=== PATIENT | female | born 1940 | race Caucasian/White ===

== ENCOUNTER 2017-06-25 18:59 | Observation (INO) | payer OTHER ==
[~2017-06-25] VITALS: Ht 165.1 cm; Wt 57.0 kg
[~2017-06-25 18:59] MED LIST: ATEN50 PO; CLON.1 PO; LEVO75TA3 PO; LOFI54TA PO; LOSA50TA PO; MOBI7.5T PO; NIFE1TAB85 PO; OXYB5TAB PO; TRAZ50TA4 PO; VENL150T14 PO
[2017-06-25 19:06] VITALS: BP 143/75; PULSE 73; RESP 20; TEMP 98.3; O2SAT 96
[2017-06-25] MEDS ORDERED: ONDANSETRON HCL 4 MG/2 ML VIAL IVP ONE (19:15)
[2017-06-25] MEDS ORDERED: MORPHINE SULFATE 4 MG/ML INJ IV PUSH ONE (19:15)
[2017-06-25 19:16] VITALS: RESP 20
[2017-06-25] MEDS ORDERED: LEVO75TA3 PO (19:28)
[2017-06-25] MEDS ORDERED: OXYB5TAB PO (19:28)
[2017-06-25] MEDS ORDERED: LEVO100T5 PO (19:28)
[2017-06-25] MEDS ORDERED: VENL75TA PO (19:28)
[2017-06-25] MEDS ORDERED: ZANT150T2 PO (19:28)
[2017-06-25] MEDS ORDERED: MELO15TA20 PO (19:28)
[2017-06-25] MEDS ORDERED: DULO1CAP PO (19:28)
[2017-06-25] MEDS ORDERED: ATEN50TA PO (19:28)
[2017-06-25] MEDS ORDERED: VENTAER INH (19:28)
[2017-06-25] MEDS ORDERED: LOSA50TA PO (19:28)
[2017-06-25] MEDS ORDERED: NIFE60TA58 PO (19:28)
[2017-06-25] MEDS ORDERED: FENO54TA PO (19:28)
[2017-06-25] MEDS ORDERED: TRAZ100T10 PO (19:28)
[2017-06-25 19:31] VITALS: BP 134/62; PULSE 64; RESP 20; TEMP 98; O2SAT 97
--- NOTE | 2017-06-25 19:33 | RADRPT ---
EXAM DATE/TIME: 06/25/2017 19:16 [facility] COMPARISON: CHEST SINGLE AP, November 10, 2015, 18:22. INDICATIONS : Chest pain. MEDICAL HISTORY : Anxiety, Hypothyroid, Hypertension, Cholesterol SURGICAL HISTORY : Tonsillectomy, Hysterectomy, Appendectomy, Gallbladder ENCOUNTER: Initial ACUITY: 1 day PAIN SCORE: 0/10 LOCATION: Bilateral chest FINDINGS: The heart size is normal. There is some faint density seen over the right upper lung likely related t o overlapping ribs. The lungs appear otherwise clear. No effusion is seen. CONCLUSION: 1. No acute abnormality seen. 2. A small focal density over the right upper chest likely related to overlapping ribs. This could be further evaluated with a PA and lateral chest x-ray. Abram Meléndez MD on June 25, 2017 at 19:30 Board Certified Radiologist. This report was verified electronically.
--- NOTE | 2017-06-25 20:12 | PD ---
HPI Chief Complaint: Chest Pain Time Seen by Provider: 19:05 Travel History International Travel<30 days: No Contact w/Intl Traveler<30days: No Traveled to known affect area: No History of Present Illness HPI 76-year-old female that presents to the ED for evaluation of left-sided chest pain and right-sided abdominal pain. Per patient he started about 2 hours before coming. Per patient he became severe. She has a history of this pain in the past but not as severe. Per patient never lasted this long. She was given aspirin by ambulance. She denies any history of stenting or CABG. Allergies to amlodipine and codeine. Per patient the pain is sharp and is 8 out of 10. more on the abdomen than the chest. Per patient she also had belching but no nausea or vomiting. Per patient abdominal pains on the right upper quadrant radiates to the flank. No urinary issues. No lower abdominal pain. She has had her gallbladder removed 4 years ago. She denies any other symptoms. She does feel short of breath because of the pain being so severe. Allergy to amlodipine and codeine. Has not seen anybody for this. Patient was brought here by ambulance for evaluation of this. Per patient she did took some Pepto-Bismol thinking that it will help but she has had similar pains with Pepto-Bismol improvement but this time it has not. PFSH Past Medical History Arthritis: Yes (OSTEOPOROSIS) Asthma: No Anxiety: Yes Heart Rhythm Problems: No Cancer: No Cardiac Catheterization: No Cardiovascular Problems: Yes High Cholesterol: Yes Chest Pain: Yes Congestive Heart Failure: No COPD: No Cerebrovascular Accident: No Diabetes: No Diminished Hearing: No Endocrine: Yes Gastrointestinal Disorders: Yes (PANCREATITIS) GERD: Yes Genitourinary: Yes Headaches: No Hiatal Hernia: No Hypertension: Yes Immune Disorder: No Implanted Vascular Access Dvce: No Kidney Stones: Yes Musculoskeletal: Yes (CARPAL TUNNEL EMMETT.; BULGING DISCS) Neurologic: Yes Psychiatric: Yes Reproductive: No Respiratory: Yes Immunizations Current: Yes Migraines: Yes Renal Failure: No Seizures: No Sleep Apnea: No Thyroid Disease: Yes (HYPO) Ulcer: No Tetanus Vaccination: < 5 Years Influenza Vaccination: Yes PNEUMOCCOCAL Vaccine (Year): 2 Menopausal: Yes Past Surgical History Abdominal Surgery: Yes (APPENDECTOMY, CHOLECYSTECTOMY,) Appendectomy: Yes (IN 1964) Cardiac Surgery: No Cholecystectomy: Yes (IN 1969) Coronary Artery Bypass Graft: No Ear Surgery: No Endocrine Surgery: No Eye Surgery: No Genitourinary Surgery: No Gynecologic Surgery: Yes (HYSTERECTOMY) Hysterectomy: Yes (RADICAL IN 1969) Neurologic Surgery: No Oral Surgery: Yes (TONSILECTOMY) Thoracic Surgery: No Tonsillectomy: Yes Other Surgery: Yes Family History Family Myocardial Infarction: Yes Social History Alcohol Use: No Tobacco Use: Yes (1PPD) Substance Use: No (H/O "PAIN PILL ABUSE" 5 YEARS AGO) Allergies-Medications (Allergen,Severity, Reaction): Coded Allergies: amlodipine (Unverified Allergy, Intermediate, Swelling, 06/25/17) Lower extremity edema codeine (Unverified Allergy, Unknown, Swelling, 06/25/17) Reported Meds & Prescriptions Reported Meds & Active Scripts Active Reported Zantac (Ranitidine HCl) 150 Mg Tab 150 Mg PO DAILY Nifedipine ER 24 HR (Nifedipine) 60 Mg Tab 60 Mg PO DAILY Losartan (Losartan Potassium) 50 Mg Tab 50 Mg PO BID Meloxicam 15 Mg Tab 15 Mg PO DAILY Fenofibrate 54 Mg Tab 54 Mg PO DAILY Atenolol 50 Mg Tab 50 Mg PO BID Oxybutynin ER 24 HR (Oxybutynin Chloride) 5 Mg Tab 5 Mg PO DAILY Effexor (Venlafaxine HCl) 75 Mg Tab 150 Mg PO DAILY Levothyroxine (Levothyroxine Sodium) 100 Mcg Tab 100 Mcg PO DAILY Duloxetine DR (Duloxetine HCl) 20 Mg Capdr 20 Mg PO DAILY Ventolin Hfa 18 GM Inh (Albuterol Sulfate) 90 Mcg/Act Aer 2 Puff INH Q4-6H PRN Trazodone (Trazodone HCl) 100 Mg Tablet 100 Mg PO HS Review of Systems Except as stated in HPI: all other systems reviewed are Neg Physical Exam Narrative GENERAL: SKIN: Warm and dry. HEAD: Atraumatic. Normocephalic. EYES: Pupils equal and round. No scleral icterus. No injection or drainage. ENT: No nasal bleeding or discharge. Mucous membranes pink and moist. Tongue is midline. No uvula deviation. NECK: Trachea midline. No JVD. CARDIOVASCULAR: Regular rate and rhythm. RESPIRATORY: No accessory muscle use. Clear to auscultation. Breath sounds equal bilaterally. GASTROINTESTINAL: Abdomen soft, non-tender, nondistended. Hepatic and splenic margins not palpable. MUSCULOSKELETAL: Extremities without clubbing, cyanosis, or edema. No obvious deformities. Full range of motion of the upper and lower extremities bilaterally. 2+ pulses bilaterally. NEUROLOGICAL: Awake and alert. No obvious cranial nerve deficits. Motor grossly within normal limits. Five out of 5 muscle strength in the arms and legs. Normal speech. PSYCHIATRIC: Appropriate mood and affect; insight and judgment normal. Data Data Last Documented VS Vital Signs Date Time Temp Pulse Resp B/P (MAP) Pulse Ox O2 Delivery O2 Flow Rate FiO2 06/25/17 19:45 20 06/25/17 19:31 98.0 64 134/62 (86) 97 Room Air Orders Orders Electrocardiogram (06/25/17 19:12) Complete Blood Count With Diff (06/25/17:12) Comprehensive Metabolic Panel (06/25/17:12) Ckmb (Isoenzyme) Profile (06/25/17 19:12) Troponin I (06/25/17:12) Prothrombin Time / Inr (Pt) (06/25/17:12) Act Partial Throm Time (Ptt) (06/25/17 19:12) Lipase (06/25/17 19:12) Urinalysis - C+S If Indicated (06/25/17 19:12) Magnesium (Mg) (06/25/17 19:12) Chest, Single Ap (06/25/17 19:12) Ct Abd/Pel W Iv Contrast(Rout) (06/25/17 19:12) Iv Access Insert/Monitor (06/25/17 19:12) Ecg Monitoring (06/25/17:12) Oximetry (06/25/17 19:12) NPO (06/25/17 19:12) Morphine Inj (Morphine Inj) (06/25/17 19:15) Ondansetron Inj (Zofran Inj) (06/25/17 19:15) Al-Mag Hy-Si 40-40-4 Mg/Ml Liq (Mag-Al P (06/25/17 20:45) Lidocaine 2% Viscous (Xylocaine 2% Visco (06/25/17 20:45) Iohexol 350 Inj (Omnipaque 350 Inj) (06/25/17 21:30) Urine Culture (06/25/17 21:30) Morphine Inj (Morphine Inj) (06/25/17 22:45) Cephalexin (Keflex) (06/25/17 22:45) Admit Order (Ed Use Only) (06/25/17 22:40) Activity Bed Rest With Brp (06/25/17 22:41) Vital Signs (Adult) Q4H (06/25/17 22:41) Cardiac Rhythm .As Directed (06/25/17 22:41) Notify Dr: Other .PRN (06/25/17 22:41) Notify DrRolando Parameters (06/25/17 22:41) Resp Oxygen Nasal Cannula (06/25/17 ) Ckmb (Isoenzyme) Profile (06/25/17 22:41) Ckmb (Isoenzyme) Profile (06/26/17 01:41) Troponin I (06/25/17 22:41) Troponin I (06/26/17 01:41) Electrocardiogram (06/25/17 22:41) Electrocardiogram (06/26/17 01:41) ^ Obtain (06/25/17 22:41) Sodium Chloride 0.9% Flush (Ns Flush) (06/25/17 22:45) Sodium Chloride 0.9% Flush (Ns Flush) (06/26/17 09:00) Acetaminophen (Tylenol) (06/25/17 22:45) Acetamin-Hydrocod 325-7.5 Mg ([place] 7.5 (06/25/17 22:45) Morphine Inj (Morphine Inj) (06/25/17 22:45) Ondansetron Inj (Zofran Inj) (06/25/17 22:45) Soap Maker / Telemetry KIRSTIN.Q8H (06/25/17 22:41) Labs Laboratory Tests Test 06/25/17 19:30 06/25/17 21:30 White Blood Count 8.9 TH/MM3 Red Blood Count 3.98 MIL/MM3 Hemoglobin 12.4 GM/DL Hematocrit 36.9 % Mean Corpuscular Volume 92.7 FL Mean Corpuscular Hemoglobin 31.2 PG Mean Corpuscular Hemoglobin Concent 33.6 % Red Cell Distribution Width 15.7 % Platelet Count 331 TH/MM3 Mean Platelet Volume 8.0 FL Neutrophils (%) (Auto) 63.3 % Lymphocytes (%) (Auto) 24.5 % Monocytes (%) (Auto) 8.7 % Eosinophils (%) (Auto) 2.6 % Basophils (%) (Auto) 0.9 % Neutrophils # (Auto) 5.6 TH/MM3 Lymphocytes # (Auto) 2.2 TH/MM3 Monocytes # (Auto) 0.8 TH/MM3 Eosinophils # (Auto) 0.2 TH/MM3 Basophils # (Auto) 0.1 TH/MM3 CBC Comment DIFF FINAL Differential Comment Prothrombin Time 10.0 SEC Prothromb Time International Ratio 1.0 RATIO Activated Partial Thromboplast Time 25.4 SEC Blood Urea Nitrogen 29 MG/DL Creatinine 1.07 MG/DL Random Glucose 75 MG/DL Total Protein 7.6 GM/DL Albumin 3.9 GM/DL Calcium Level 9.3 MG/DL Magnesium Level 1.9 MG/DL Alkaline Phosphatase 51 U/L Aspartate Amino Transf (AST/SGOT) 10 U/L Alanine Aminotransferase (ALT/SGPT) 14 U/L Total Bilirubin 0.2 MG/DL Sodium Level 139 MEQ/L Potassium Level 3.2 MEQ/L Chloride Level 104 MEQ/L Carbon Dioxide Level 26.2 MEQ/L Anion Gap 9 MEQ/L Estimat Glomerular Filtration Rate 50 ML/MIN Total Creatine Kinase 33 U/L Troponin I LESS THAN 0.02 NG/ML Lipase 172 U/L Urine Color LIGHT-YELLOW Urine Turbidity CLEAR Urine pH 6.0 Urine Specific [place] 1.015 Urine Protein NEG mg/dL Urine Glucose (UA) NEG mg/dL Urine Ketones NEG mg/dL Urine Occult Blood NEG Urine Nitrite NEG Urine Bilirubin NEG Urine Urobilinogen LESS THAN 2.0 MG/DL Urine Leukocyte Esterase MOD Urine WBC 17 /hpf Urine Squamous Epithelial Cells <1 /hpf Urine Bacteria MANY /hpf Microscopic Urinalysis Comment CULTURE INDICATED MDM Medical Decision Making Medical Screen Exam Complete: Yes Emergency Medical Condition: Yes Medical Record Reviewed: Yes Interpretation(s) CBC & BMP Diagram 06/25/17 19:30 Total Protein 7.6, Albumin 3.9, Calcium Level 9.3, Magnesium Level 1.9, Alkaline Phosphatase 51, Aspartate Amino Transf (AST/SGOT) 10 L, Alanine Aminotransferase (ALT/SGPT) 14, Total Bilirubin 0.2 Last Impressions Chest X-Ray 06/25/171911 Signed Impressions: Service Date/Time: Sunday, June 25, 2017 19:16 - CONCLUSION: 1. No acute abnormality seen. 2. A small focal density over the right upper chest likely related to overlapping ribs. This could be further evaluated with a PA and lateral chest x-ray. Abram Meléndez MD Abdomen/Pelvis CT 06/25/171911 Signed Impressions: Service Date/Time: Sunday, June 25, 2017 21:17 - CONCLUSION: 1. Moderate dilatation of the right collecting system with the cause not clearly being seen. There is no delayed enhancement of the kidneys on either side. 2. Biliary dilatation likely reflecting a reservoir phenomenon following cholecystectomy. 3. The pancreas appears normal. Abram Meléndez MD EKG shows sinus rhythm with no sign of acute ischemia or arrhythmia read by me and attending. Troponin and CK-MB negative. Differential Diagnosis Chest pain versus typical chest pain versus anxiety versus GERD versus pancreatitis versus UTI versus acute abdomen versus obstruction versus pneumonia Narrative Course 76-year-old female that presents to the ED for evaluation of chest pain and abdominal pain. Patient was properly examined and was found to have signs and symptoms of unclear etiology but definite concerning for ACS versus abdominal etiology. Labs and imaging order. Patient was given IV pain medications. Labs and imaging showed no sign of acute disease. Patient does appear to have possible UTI. Unclear etiology of the chest pain. Some concern for ACS. The review her records and she did had a stress test in 2016. Per patient she had one when she was last here which was 2016. She does have a history of hypertension and hyperlipidemia. She does have risk factors for heart disease. Cannot completely rule out ACS. Recommendation by my attending Dr Gonzalez who evaluated the patient and reviewed records who agrees for admission for chest pain center rule out. Patient agrees with this. Patient was given one more dose of pain medication and start on Keflex for her UTI. Patient admitted to the chest pain center by me. Procedures EKG Prior to Arrival: No Diagnosis Primary Impression: Chest pain Qualified Codes: R07.9 - Chest pain, unspecified Admitting Information Admitting Physician Requests: Observation Sang Charles June 25, 2017 20:12
[2017-06-25 20:20] LABS: AUTOMATED NEUTROPHIL # 5.6 TH/MM3 (1.8-7.7); BASOPHIL # 0.1 TH/MM3 (0-0.2); BASOPHIL % 0.9 % (0.0-2.0); EOSINOPHIL # 0.2 TH/MM3 (0-0.4); EOSINOPHIL % 2.6 % (0.0-4.0); HEMATOCRIT 36.9 % (35.0-46.0); HEMOGLOBIN 12.4 GM/DL (11.6-15.3); LYMPH % 24.5 % (9.0-44.0); LYMPHOCYTE # 2.2 TH/MM3 (1.0-4.8); MEAN CELL VOLUME 92.7 FL (80.0-100.0); MEAN CORPUSCULAR HEMOGLOBIN 31.2 PG (27.0-34.0); MEAN CORPUSCULAR HGB CONC 33.6 % (32.0-36.0); MONO % 8.7 % (0.0-8.0); MONOCYTE # 0.8 TH/MM3 (0-0.9); NEUT % 63.3 % (16.0-70.0); PLATELET COUNT 331 TH/MM3 (150-450); RED BLOOD COUNT 3.98 MIL/MM3 (4.00-5.30); RED CELL DISTRIBUTION WIDTH 15.7 % (11.6-17.2); WHITE BLOOD COUNT 8.9 TH/MM3 (4.0-11.0)
[2017-06-25 20:36] LABS: ALBUMIN 3.9 GM/DL (3.4-5.0); AST (GOT) 10 U/L (15-37); BICARBONATE 26.2 MEQ/L (21.0-32.0); BLOOD UREA NITROGEN 29 MG/DL (7-18); CALCIUM 9.3 MG/DL (8.5-10.1); CHLORIDE 104 MEQ/L (98-107); CREATININE 1.07 MG/DL (0.50-1.00); GLOMERULAR FILTRATION RATE 50 ML/MIN (>89); GLUCOSE,RANDOM 75 MG/DL (74-106); MAGNESIUM 1.9 MG/DL (1.5-2.5); SODIUM (NA) 139 MEQ/L (136-145)
[2017-06-25 20:38] LABS: ALT (GPT) 14 U/L (10-53)
[2017-06-25 20:42] LABS: ALKALINE PHOSPHATASE 51 U/L (45-117); TOTAL BILIRUBIN ADULT 0.2 MG/DL (0.2-1.0); TOTAL PROTEIN 7.6 GM/DL (6.4-8.2); TROPONIN I LESS THAN 0.02 NG/ML (0.02-0.05)
[2017-06-25] MEDS ORDERED: LIDOCAINE VISCOUS 2% SOLN 15 ML UDC PO ONE (20:45)
[2017-06-25] MEDS ORDERED: ALUMINUM/MAGNESIUM/SIMETH 30 ML CUP PO ONE (20:45)
[2017-06-25] MEDS ORDERED: IOHEXOL 350 MG/ML 10 ML VIAL (for RAD DIAG) IVCONTRAST ONE (21:30)
[2017-06-25 21:52] LABS: BACTERIA, URINE MANY /hpf; BILIRUBIN, URINE NEG (NEG); BLOOD, URINE NEG (NEG); GLUCOSE,URINE NEG (NEG); KETONE, URINE NEG (NEG); NITRITE,URINE NEG (NEG); SQUAMOUS EPITHELIAL CELL URINE <1 /hpf (0-5); URINE COLOR LIGHT-YELLOW (YELLW/STRAW); URINE LEUKOCYTE ESTERASE MOD (NEG)
[2017-06-25 22:00] VITALS: BP 130/60; PULSE 57; RESP 20; O2SAT 97
--- NOTE | 2017-06-25 22:05 | RADRPT ---
EXAM DATE/TIME: 06/25/2017 21:17 [facility] COMPARISON: CT ABDOMEN & PELVIS W/O CONTRAST, June 27, 2015, 20:01. INDICATIONS : Right sided abdominal pain. IV CONTRAST: 85 cc Omnipaque 350 (iohexol) IV ORAL CONTRAST: No oral contrast ingested. RADIATION DOSE: 5.61 CTDIvol (mGy) MEDICAL HISTORY : Pancreatitis. Hypertension. Renal calculi. SURGICAL HISTORY : Appendectomy. Cholecystectomy.Hysterectomy. ENCOUNTER: Initial ACUITY: 1 day PAIN SCALE: 6/10 LOCATION: Right abdomen. TECHNIQUE: Volumetric scanning of the abdomen and pelvis was performed. Using automated exposure control and ad justment of the mA and/or kV according to patient size, radiation dose was kept as low as reasonably achievable to obtain optimal diagnostic quality images. DICOM format image data is available electro nically for review and comparison. FINDINGS: LOWER LUNGS: The visualized lower lungs are clear. LIVER: There is intra-and extrahepatic biliary duct dilatation with the common bile duct measuring 9 mm. The patient is status post cholecystectomy. This may reflect a reservoir phenomenon. No focal hepatic le sions are seen. SPLEEN: Normal size without lesion. PANCREAS: Within normal limits. KIDNEYS: Normal in size and shape. There is no mass or stone. There is moderate dilatation of the right colle cting system. There are calcifications seen adjacent to the distal right ureter. These were present o n the prior CT examination. A ureteral stone is not confirmed. ADRENAL GLANDS: Within normal limits. VASCULAR: There is no aortic aneurysm. BOWEL/MESENTERY: The stomach, small bowel, and colon demonstrate no acute abnormality. There is no free intraperitone al air or fluid. ABDOMINAL WALL: Within normal limits. RETROPERITONEUM: There is no lymphadenopathy. BLADDER: No wall thickening or mass. REPRODUCTIVE: The patient is status post hysterectomy. INGUINAL: There is no lymphadenopathy or hernia. MUSCULOSKELETAL: Within normal limits for patient age. There is degenerative change of the lumbar spine. CONCLUSION: 1. Moderate dilatation of the right collecting system with the cause not clearly being seen. There is no delayed enhancement of the kidneys on either side. 2. Biliary dilatation likely reflecting a reservoir phenomenon following cholecystectomy. 3. The pancreas appears normal. Abram Meléndez MD on June 25, 2017 at 21:53 Board Certified Radiologist. This report was verified electronically.
[2017-06-25] MEDS ORDERED: MORPHINE SULFATE 2 MG/ML SYRINGE IV PUSH ONE (22:45)
[2017-06-25] MEDS ORDERED: MORPHINE SULFATE 4 MG/ML INJ IV PUSH PRN (22:45)
[2017-06-25] MEDS ORDERED: SODIUM CHLORIDE 0.9% FLUSH 10 ML FLUSH IV FLUSH PRN (22:45)
[2017-06-25] MEDS ORDERED: ACETAMINOPHEN/HYDROcodone 325 MG/7.5 MG TAB PO PRN (22:45)
[2017-06-25] MEDS ORDERED: ONDANSETRON HCL 4 MG/2 ML VIAL IV PUSH PRN (22:45)
[2017-06-25] MEDS ORDERED: ACETAMINOPHEN 500 MG CPLT PO PRN (22:45)
[2017-06-25] MEDS ORDERED: CEPHALEXIN MONOHYDRATE 500 MG CAP PO ONE (22:45)
[2017-06-25 23:54] VITALS: BP 139/65; PULSE 69; RESP 16; TEMP 97.9; O2SAT 95
[2017-06-26 00:03] LABS: TROPONIN I LESS THAN 0.02 NG/ML (0.02-0.05)
[2017-06-26 03:13] LABS: TROPONIN I LESS THAN 0.02 NG/ML (0.02-0.05)
[2017-06-26 03:52] VITALS: BP 110/51; PULSE 70; RESP 15; TEMP 97.7; O2SAT 94
[2017-06-26 07:03] VITALS: BP 99/52; PULSE 63; RESP 18; TEMP 98.1; O2SAT 92
[2017-06-26] MEDS ORDERED: ALPRAZolam 0.25 MG TAB PO ONE (08:00)
--- NOTE | 2017-06-26 08:12 | HHI.HP ---
[facility] Primary Care Physician Cuong Holley M.D. Chief Complaint Chest pain History of Present Illness This is a 76-year-old female that presents to ED via private vehicle with complaint of a central and left-sided chest discomfort that she describes as a pressure. States that he has been constantly there for 4 years however it occasionally will worsen. Usually when it worsens it will last at a higher level for 15-20 minutes however yesterday it lasted at a higher level for about 2-1/2 hours which scared her. She at times become short of breath with this but is not really sure if it is related to her COPD or anxiety. States she has been evaluated for chest discomfort in the past. Upon reviewing records she had a nonischemic Lexiscan September 2015 at this facility. She spoke with her primary care physician about her discomforts last month and states she was going to be referred to a python programmer to have a ultrasound of her heart. Patient really has not found anything to make her discomfort has been there constantly for 4 years worse. She states "I usually can get my mind on something else but yesterday I cannot change my mind off of it." Review of Systems General: Patient denies fevers, chills, and recent travel. HEENT: Patient denies headache, sore throat, difficulty swallowing. Cardiovascular: Has the chest discomfort as mentioned above. Denies sensation of heart beating rapidly or irregularly. No syncope. Denies diaphoresis. Respiratory: She at times short of breath. Denies inspirational chest discomfort. Denies coughing wheezing or hemoptysis. GI: Patient denies nausea, vomiting, diarrhea, abdominal pain, bloody stools. Musculoskeletal: Patient denies joint pain or edema. Denies calf pain or edema. Neurovascular: Patient denies numbness, tingling, weakness in extremities. Denies headache. Endocrine: Denies polyuria and polydipsia. Hematologic: Denies easy bruising. Skin: Denies rash or itching. Past Family Social History Allergies: Coded Allergies: amlodipine (Unverified Allergy, Intermediate, Swelling, 06/25/17) Lower extremity edema codeine (Unverified Allergy, Unknown, Swelling, 06/25/17) Past Medical History Hypertension, hyperlipidemia, COPD, tobacco abuse, hypothyroidism, depression, and anxiety. Denies diabetes and known CAD. Past Surgical History Appendectomy, cholecystectomy, hysterectomy, tonsillectomy. Reported Medications Reported Meds & Active Scripts Active Reported Zantac (Ranitidine HCl) 150 Mg Tab 150 Mg PO DAILY Nifedipine ER 24 HR (Nifedipine) 60 Mg Tab 60 Mg PO DAILY Losartan (Losartan Potassium) 50 Mg Tab 50 Mg PO BID Meloxicam 15 Mg Tab 15 Mg PO DAILY Fenofibrate 54 Mg Tab 54 Mg PO DAILY Atenolol 50 Mg Tab 50 Mg PO BID Oxybutynin ER 24 HR (Oxybutynin Chloride) 5 Mg Tab 5 Mg PO DAILY Effexor (Venlafaxine HCl) 75 Mg Tab 150 Mg PO DAILY Levothyroxine (Levothyroxine Sodium) 100 Mcg Tab 100 Mcg PO DAILY Duloxetine DR (Duloxetine HCl) 20 Mg Capdr 20 Mg PO DAILY Ventolin Hfa 18 GM Inh (Albuterol Sulfate) 90 Mcg/Act Aer 2 Puff INH Q4-6H PRN Trazodone (Trazodone HCl) 100 Mg Tablet 100 Mg PO HS Active Ordered Medications Current Medications Medications (Trade) Dose Ordered Sig/Ariana Route Start Time Stop Time Status Last Admin (NS Flush) 2 ml UNSCH PRN IV FLUSH 06/25/17 22:45 (NS Flush) 2 ml BID IV FLUSH 06/26/17 09:00 (Tylenol) 500 mg Q4H PRN PO 06/25/17 22:45 (Bramwell 7.5-325 Mg) 1 tab Q4H PRN PO 06/25/17 22:45 06/26/17 03:25 (Morphine Inj) 2 mg Q4H PRN IV PUSH 06/25/17 22:45 (Zofran Inj) 4 mg Q6H PRN IV PUSH 06/25/17 22:45 (Xanax) 0.25 mg NOW ONCE PO 06/26/17 08:00 06/26/17 08:01 UNV (Tenormin) 50 mg BID PO 06/26/17 09:00 UNV (Cymbalta Dr) 20 mg DAILY PO 06/26/17 09:00 UNV (Synthroid) 100 mcg DAILY PO 06/26/17 09:00 UNV (Cozaar) 50 mg BID PO 06/26/17 09:00 UNV (Procardia Xl) 60 mg DAILY PO 06/26/17 09:00 UNV Non-Formulary Medication 150 mg DAILY PO 06/26/17 09:00 UNV Non-Formulary Medication 100 mg HS PO 06/26/17 21:00 UNV Non-Formulary Medication 150 mg DAILY PO 06/26/17 09:00 UNV (Duoneb Neb) 1 ampule Q4HR NEB PRN INH 06/26/17 08:15 UNV Family History Cannot recall family history of CAD. Social History She has been smoking one half pack a series daily for the past 3 months but prior to that her average was about 1 pack of cigarettes daily on and off and she believes that she may have smoked for 30 years. Occasional alcohol. Denies illicit drug use. Physical Exam Vital Signs Vital Signs Date Time Temp Pulse Resp B/P (MAP) Pulse Ox O2 Delivery O2 Flow Rate FiO2 06/26/17 07:03 98.1 63 18 99/52 (68) 92 06/26/17 03:52 97.7 70 15 110/51 (70) 94 06/25/17 23:54 97.9 69 16 139/65 (89) 95 06/25/17 23:16 20 06/25/17 22:00 57 20 130/60 (83) 97 Room Air 06/25/17 19:45 20 06/25/17 19:31 98.0 64 20 134/62 (86) 97 Room Air 06/25/17 19:16 20 06/25/17 19:06 98.3 73 20 143/75 (97) 96 Physical Exam GENERAL: This is a well-nourished, well-developed patient, in no apparent distress. Patient speaks in clear complete sentences. Patient is pleasant. HEENT: Head is atraumatic and normocephalic. Neck is supple without lymphadenopathy and trachea is midline. No JVD or carotid bruits. CARDIOVASCULAR: Regular rate and rhythm without murmurs, gallops, or rubs. RESPIRATORY: Clear to auscultation. Breath sounds equal bilaterally. No wheezes , rales, or rhonchi. Chest wall is nontender. No use of accessory muscles. GASTROINTESTINAL: Abdomen is nontender, nondistended. Abdomen soft. No obvious pulsatile mass or bruit. No CVA tenderness. Strong femoral pulses bilaterally. Normal bowel sounds in all quadrants. MUSCULOSKELETAL: Patient is moving upper and lower extremities freely. No calf tenderness or edema, no Homans sign. Strong pulses in upper and lower extremities. NEUROLOGICAL: Patient is alert and oriented. Cranial nerves 2-12 are grossly intact. No focal deficits and speech is clear. SKIN: No rash and turgor is normal. Laboratory Laboratory Tests Test 06/25/17 19:30 06/25/17 21:30 06/25/17 23:15 06/26/17 02:00 White Blood Count 8.9 Red Blood Count 3.98 Hemoglobin 12.4 Hematocrit 36.9 Mean Corpuscular Volume 92.7 Mean Corpuscular Hemoglobin 31.2 Mean Corpuscular Hemoglobin Concent 33.6 Red Cell Distribution Width 15.7 Platelet Count 331 Mean Platelet Volume 8.0 Neutrophils (%) (Auto) 63.3 Lymphocytes (%) (Auto) 24.5 Monocytes (%) (Auto) 8.7 Eosinophils (%) (Auto) 2.6 Basophils (%) (Auto) 0.9 Neutrophils # (Auto) 5.6 Lymphocytes # (Auto) 2.2 Monocytes # (Auto) 0.8 Eosinophils # (Auto) 0.2 Basophils # (Auto) 0.1 CBC Comment DIFF FINAL Differential Comment Prothrombin Time 10.0 Prothromb Time International Ratio 1.0 Activated Partial Thromboplast Time 25.4 Blood Urea Nitrogen 29 Creatinine 1.07 Random Glucose 75 Total Protein 7.6 Albumin 3.9 Calcium Level 9.3 Magnesium Level 1.9 Alkaline Phosphatase 51 Aspartate Amino Transf (AST/SGOT) 10 Alanine Aminotransferase (ALT/SGPT) 14 Total Bilirubin 0.2 Sodium Level 139 Potassium Level 3.2 Chloride Level 104 Carbon Dioxide Level 26.2 Anion Gap 9 Estimat Glomerular Filtration Rate 50 Total Creatine Kinase 33 34 39 Troponin I LESS THAN 0.02 LESS THAN 0.02 LESS THAN 0.02 Lipase 172 Urine Color LIGHT-YELLOW Urine Turbidity CLEAR Urine pH 6.0 Urine Specific [place] 1.015 Urine Protein NEG Urine Glucose (UA) NEG Urine Ketones NEG Urine Occult Blood NEG Urine Nitrite NEG Urine Bilirubin NEG Urine Urobilinogen LESS THAN 2.0 Urine Leukocyte Esterase MOD Urine WBC 17 Urine Squamous Epithelial Cells <1 Urine Bacteria MANY Microscopic Urinalysis Comment CULTURE INDICATED Date/Time Source Procedure Growth Status 06/25/17 21:30 Urine Clean Catch Urine Culture Pending Received Result Diagram: 06/25/17192906/25/171929 Imaging Last 48 hours Impressions Chest X-Ray 06/25/171911 Signed Impressions: Service Date/Time: Sunday, June 25, 2017 19:16 - CONCLUSION: 1. No acute abnormality seen. 2. A small focal density over the right upper chest likely related to overlapping ribs. This could be further evaluated with a PA and lateral chest x-ray. Abram Meléndez MD Abdomen/Pelvis CT 06/25/171911 Signed Impressions: Service Date/Time: Sunday, June 25, 2017 21:17 - CONCLUSION: 1. Moderate dilatation of the right collecting system with the cause not clearly being seen. There is no delayed enhancement of the kidneys on either side. 2. Biliary dilatation likely reflecting a reservoir phenomenon following cholecystectomy. 3. The pancreas appears normal. Abram Meléndez MD Course EKGs are sinus rhythm without significant ST segment depressions or elevations. Caprini VTE Risk Assessment Caprini VTE Risk Assessment: Mod/High Risk (score >= 2) Caprini Risk Assessment Model Point Value = 1 Point Value = 2 Point Value = 3 Point Value = 5 Age 41-60 Minor surgery BMI > 25 kg/m2 Swollen legs Varicose veins or History of unexplained or recurrent spontaneous Oral contraceptives or hormone replacement Sepsis (< 1 month) Serious lung disease, including pneumonia (< 1 month) Abnormal pulmonary function Acute myocardial infarction Congestive heart failure (< 1 month) History of inflammatory bowel disease Medical patient at bed rest Age 61-74 Arthroscopic surgery Major open surgery (> 45 min) Laparoscopic surgery (> 45 min) Malignancy Confined to bed (> 72 hours) Immobilizing plaster cast Central venous access Age >= 75 History of VTE Family history of VTE Factor V Leiden Prothrombin [id number] Lupus anticoagulant Anticardiolipin antibodies Elevated serum homocysteine Heparin-induced thrombocytopenia Other congenital or acquired thrombophilia Stroke (< 1 month) Elective arthroplasty Hip, pelvis, or leg fracture Acute spinal cord injury (< 1 month) Prophylaxis Regimen Total Risk Factor Score Risk Level Prophylaxis Regimen 0-1 Low Early ambulation 2 Moderate Order ONE of the following: *Sequential Compression Device (SCD) *Heparin 5000 units SQ BID 3-4 Higher Order ONE of the following medications: *Heparin 5000 units SQ TID *Enoxaparin/Lovenox 40 mg SQ daily (WT < 150 kg, CrCl > 30 mL/min) *Enoxaparin/Lovenox 30 mg SQ daily (WT < 150 kg, CrCl > 10-29 mL/min) *Enoxaparin/Lovenox 30 mg SQ BID (WT < 150 kg, CrCl > 30 mL/min) AND/OR *Sequential Compression Device (SCD) 5 or more Highest Order ONE of the following medications: *Heparin 5000 units SQ TID (Preferred with Epidurals) *Enoxaparin/Lovenox 40 mg SQ daily (WT < 150 kg, CrCl > 30 mL/min) *Enoxaparin/Lovenox 30 mg SQ daily (WT < 150 kg, CrCl > 10-29 mL/min) *Enoxaparin/Lovenox 30 mg SQ BID (WT < 150 kg, CrCl > 30 mL/min) AND *Sequential Compression Device (SCD) Assessment and Plan Assessment and Plan * Chest pain: Patient has had serial cardiac enzymes and EKGs for ruling out purposes. She was seen by Dr. Jorge Chamberlain of cardiology in the chest pain center. She will undergo a Lexiscan then be discharged home with instructions to follow-up with PCP. Return to ED for interval issues. * Hypertension: Continue medication. * Hyperlipidemia: Continue medication. * Hypothyroidism: Continue medication. * Anxiety/depression: Continue medication. * Tobacco abuse: Patient has been counseled on importance of smoking cessation. * UTI: Rx Cipro. Patient is stable at this time. She is agreeable to this plan. Shaji Crowder June 26, 2017 08:12
--- NOTE | 2017-06-26 08:14 | HHI.DCPOC ---
Discharge Care Plan Diagnosis: (1) Atypical chest pain (2) HTN (hypertension) (3) Hyperlipidemia (4) Tobacco abuse (5) Hypothyroidism (6) UTI (urinary tract infection) Goals to Promote Your Health * To prevent worsening of your condition and complications * To maintain your health at the optimal level Directions to Meet Your Goals Take your medications as prescribed Follow your dietary instruction Follow activity as directed Keep your appointments as scheduled Take your immunizations and boosters as scheduled If your symptoms worsen call your PCP, if no PCP go to Urgent Care Center or Emergency Room Smoking is Dangerous to Your Health. Avoid second hand smoke Call the 24-hour hour crisis hotline for domestic abuse at Shaji Crowder June 26, 2017 08:14
[2017-06-26] MEDS ORDERED: RESP: ALBUTEROL 2.5 MG/IPRATROPIUM 0.5 MG NEB (PRN) INH (08:15)
[2017-06-26] MEDS ORDERED: LOSARTAN 50 MG TAB PO SCH (09:00)
[2017-06-26] MEDS ORDERED: DULoxetine HCl DR 20 MG CAP PO SCH (09:00)
[2017-06-26] MEDS ORDERED: ATENOLOL 50 MG TAB PO SCH (09:00)
[2017-06-26] MEDS ORDERED: LEVOTHYROXINE SODIUM 100 MCG TAB PO SCH (09:00)
[2017-06-26] MEDS ORDERED: SODIUM CHLORIDE 0.9% FLUSH 10 ML FLUSH IV FLUSH SCH (09:00)
[2017-06-26] MEDS ORDERED: NIFEdipine 60 MG SUSTAINED RELEASE TAB PO SCH (09:00)
[2017-06-26] MEDS ORDERED: POTASSIUM CHLORIDE 20 MEQ CONTROLLED RELEASE TAB PO ONE (09:15)
[2017-06-26 09:25] VITALS: BP 102/53
[2017-06-26] MEDS ORDERED: VENLAFAXINE HCL XR 75 MG CAP PO SCH (09:30)
[2017-06-26] MEDS ORDERED: FAMOTIDINE 20 MG TAB PO SCH ×2 (09:30→21:00)
[2017-06-26 10:53] VITALS: BP 100/49; PULSE 70; RESP 18; TEMP 98.2; O2SAT 94
[2017-06-26] MEDS ORDERED: REGADENOSON INJ 0.4 MG/5 ML SYR ONE (12:53)
--- NOTE | 2017-06-26 14:03 | EKG ---
Date Performed: 06/25/2017 Time Performed: 23:27:41 PTAGE: 76 years EKG: SINUS BRADYCARDIA LOW QRS VOLTAGE IN PRECORDIAL LEADS BORDERLINE ECG PREVIOUS TRACING : 06/25/2017 19.15 Since previous tracing, no significant change noted DOCTOR: Jorge Chamberlain Interpretating Date/Time 06/26/2017 14:02:47
--- NOTE | 2017-06-26 14:07 | EKG ---
Date Performed: 06/25/2017 Time Performed: 19:15:10 PTAGE: 76 years EKG: Sinus rhythm LOW QRS VOLTAGE IN PRECORDIAL LEADS BORDERLINE ECG PREVIOUS TRACING : 11/11/2015 07.48 Since previous tracing, no significant change noted DOCTOR: Jorge Chamberlain Interpretating Date/Time 06/26/2017 14:05:01
--- NOTE | 2017-06-26 14:09 | EKG ---
Date Performed: 06/26/2017 Time Performed: 01:35:24 PTAGE: 76 years EKG: Sinus rhythm LOW QRS VOLTAGE IN PRECORDIAL LEADS BORDERLINE ECG PREVIOUS TRACING : 06/25/2017 23.27 Since previous tracing, no significant change noted DOCTOR: Jorge Chamberlain Interpretating Date/Time 06/26/2017 14:07:30
--- NOTE | 2017-06-26 14:09 | TR ---
Date Performed: 06/26/2017 Time Performed: 13:06:00 DOCTOR: Jorge Chamberlain DRUG LIST: ALBUTEROL CATAPRES CLINICAL HISTORY: HTN GERD CHEST PAIN CHEST PAIN SM OKER REASON FOR TEST: CHEST PAIN REASON FOR ENDING: OBSERVATION: CONCLUSION: Lexiscan stress test was performed under standard four minute protocol. Radionuclid e was injected one minute prior to ending the test. No electrocardiographic abormalities were present to suggest ischemia. Nuclear imaging and interpretation are pending. COMMENTS:
--- NOTE | 2017-06-26 14:21 | RADRPT ---
EXAM DATE/TIME: 06/26/2017 12:27 [facility] COMPARISON: MYOCARDIAL PERF PHARM SPECT, GATED W/EF, October 14, 2015, 12:19. INDICATIONS : Left sided chest pain. Angina. DOSE: 25.4 mCi Tc99m Myoview at stress. 8.3 mCi Tc99m Myoview at rest. 0.4 mg Lexiscan STRESS SYMPTOMS: Dyspnea. EJECTION FRACTION: 70% MEDICAL HISTORY : Hypertension. SURGICAL HISTORY : Hysterectomy. Cholecystectomy. ENCOUNTER: Initial ACUITY: 1 day PAIN SCALE: 3/10 LOCATION: Left chest TECHNIQUE: The patient underwent pharmacologic stress with infusion of prescribed dose. Continuous ECG tracing was monitored during stress. Gated SPECT imaging was performed after stress and conventional SPECT i maging was performed at rest. The examination was performed on a SPECT/CT scanner, both attenuation and non-corrected datasets were reviewed. FINDINGS: DISTRIBUTION: The maximum perfused segment at stress is in the septal wall. PERFUSION STUDY: The pattern of perfusion at stress is within normal limits. GATED STUDY: There is intact wall motion and thickening without hypokinetic or dyskinetic segments. CONCLUSION: Normal examination. RISK CATEGORY: Low (<1% Annual Mortality Rate) Abram Westfall MD on June 26, 2017 at 14:16 Board Certified Radiologist. This report was verified electronically.
[2017-06-26] MEDS ORDERED: CIPR250T52 PO (14:30)
[2017-06-26] MEDS ORDERED: traZODone HCL 100 MG TAB PO SCH (21:00)
== END 2017-06-26 17:24 | disposition home health service (06) ==
LOC: NEPC 18:59 → NEDA 22:42 → NEPGCP 23:39
PROVIDERS: ADMIT Internal Medicine Interventional Cardiology; ATTEND Internal Medicine Interventional Cardiology
DX: R07.89 Other chest pain (principal); N39.0 Urinary tract infection, site not specified; B96.1 Klebsiella pneumoniae [K. pneumoniae] as the cause of diseases classified elsewhere; I10 Essential (primary) hypertension; R00.1 Bradycardia, unspecified; E78.5 Hyperlipidemia, unspecified; J44.9 Chronic obstructive pulmonary disease, unspecified; E03.9 Hypothyroidism, unspecified; K21.9 Gastro-esophageal reflux disease without esophagitis; F41.9 Anxiety disorder, unspecified; F32.9 Major depressive disorder, single episode, unspecified; M81.0 Age-related osteoporosis without current pathological fracture; F17.200 Nicotine dependence, unspecified, uncomplicated; Z79.899 Other long term (current) drug therapy
CPT/HCPCS: 71045; 74177; 78452; 80053; 81001; 82550; 83690; 83735; 84484; 85025; 85610; 85730; 87077; 87086; 87186; 93005; 93017; 96374; 96375; 96376; 99285; A9502; G0378; J2270; J2405; J2785; Q9967

== ENCOUNTER 2018-04-07 14:54 | Observation (INO) ==
[2018-04-07] MEDS ORDERED: Morphine Inj 4 MG/ML Vial IV.PUSH ONE (21:20)
--- NOTE | 2018-04-07 21:46 | XR ---
EXAM DATE: 04/07/2018 9:43 PM EST AGE/SEX: 77 years / Female INDICATIONS: Mid chest and neck pain. CLINICAL DATA: This is the patient's initial encounter. Patient reports that signs and symptoms have been present for 1 day and indicates a pain score of 10/10. MEDICAL/SURGICAL HISTORY: Hypertension. Chronic obstructive pulmonary disease. None. COMPARISON: [facility] [place]ST SING[place] AP, 06/25/2017. . FINDINGS: There are atelectatic changes at the lung bases. Cardiomegaly is noted. No effusions. Osseous structu res are intact. CONCLUSION: Basilar atelectasis with shallow lung volumes. Electronically signed by: Sanjay Vyas MD Board Certified Radiologist 04/07/2018 9:45 PM EST
[2018-04-07 22:27] LABS: Baso # (Auto) 0.1 th/mm3 (0.0-0.2); Baso % (Auto) 0.8 % (0.0-2.0); Eos # (Auto) 0.2 th/mm3 (0.0-0.4); Eos % (Auto) 1.8 % (0.0-4.0); Hematocrit 37.8 % (35.0-46.0); Hemoglobin 12.8 gm/dL (11.6-15.3); Lymph # (Auto) 2.1 th/mm3 (1.0-4.8); Lymph % (Auto) 18.6 % (9.0-44.0); Mean Corpuscular HGB Conc 33.9 % (32.0-36.0); Mean Corpuscular Hemoglobin 30.3 pg (27.0-34.0); Mean Corpuscular Volume 89.2 fL (80.0-100.0); Mean Platelet Volume 9.1 fL (7.0-11.0); Mono # (Auto) 0.9 th/mm3 (0.0-0.9); Mono % (Auto) 7.7 % (0.0-8.0); Neut # (Auto) 7.9 th/mm3 (1.8-7.7); Neut % (Auto) 71.1 % (16.0-70.0); Platelet Count 250 th/mm3 (150-450); Red Blood Count 4.24 mil/mm3 (4.00-5.30); Red Cell Distribution Width 13.4 % (11.6-17.2); White Blood Count 11.1 th/mm3 (4.0-11.0)
[2018-04-07 22:42] LABS: Albumin 3.4 g/dL (3.4-5.0); Anion Gap 7 meq/L (5-15); Aspartate Aminotransferase 19 U/L (15-37); Blood Urea Nitrogen 7 mg/dL (7-18); Calcium 8.8 mg/dL (8.5-10.1); Carbon Dioxide 28.4 meq/L (21.0-32.0); Chloride 104 meq/L (98-107); Glomerular Filtration Rate 63 mL/min (>89); Glucose,Random 86 mg/dL (74-106); Potassium 3.2 meq/L (3.5-5.1); Sodium 139 meq/L (136-145)
[2018-04-07 22:43] LABS: Alanine Aminotransferase 19 U/L (10-53)
--- NOTE | 2018-04-07 22:45 | ED ---
HPI General Chief complaint: Chest Pain Stated complaint: Neck / chest pain Time Seen by Provider: 04/07/18 21:08 Source: patient Mode of arrival: ambulatory Limitations: no limitations History of Present Illness HPI narrative: Patient is a 77 year old female who comes in complaining of chest pain. She says she started with neck pain for 3 days. She says she has had to sit with her shoulders hunched due to the stiffness and pain in her neck. She says she started to have chest pain around 11AM today. She says it feels like a pressure in her chest and the pain radiates outwards. She says she has some shortness of breath. She denies nausea or vomiting. She says she took 3 nitro at home without relief of the chest pain. She denies fever or chills. Severity is moderate. Related Data Home Medications Medication Instructions Recorded Confirmed atenolol 50 mg PO BID 04/07/18 04/07/18 atorvastatin 40 mg PO QPM 04/07/18 04/07/18 gabapentin 100 mg PO BID 04/07/18 04/07/18 levothyroxine 75 mcg PO DAILY 04/07/18 04/07/18 losartan 100 mg PO DAILY 04/07/18 04/07/18 nitroglycerin 0.4 mg SUBLINGUAL Q5-15M PRN 04/07/18 04/07/18 trazodone 100 mg PO DAILY 04/07/18 04/07/18 venlafaxine 150 mg PO DAILY 04/07/18 04/07/18 Allergies Allergy/AdvReac Type Severity Reaction Status Date / Time amlodipine Allergy Intermediate Swelling Verified 04/07/18 21:12 codeine Allergy Unknown Swelling Verified 04/07/18 21:12 Review of Systems ROS: all other systems reviewed are negative Constitutional Denies chills and Denies fever(s) ENT Denies dizziness Cardiovascular Reports chest pain Respiratory Denies cough and Reports dyspnea Gastrointestinal Denies abdominal pain, Denies nausea and Denies vomiting Musculoskeletal Denies myalgias and Denies arthralgias Integumentary/Breasts Denies sores and Denies wounds Neurologic Denies focal weakness and Denies numbness [facility] Medical History Medical History Acute depression (Acute) Anxiety (Acute) COPD (chronic obstructive pulmonary disease) (Acute) H/O: hysterectomy (Acute) HTN (hypertension) (Acute) Rheumatoid osteoperiostitis (Acute) Gout (Acute) Surgical History Surgical History History of cholecystectomy (Acute) Social History Social History Substance History: No History of Abuse Second Hand Smoke Exposure: Yes Smoking Status: Current every day smoker Tobacco Type: Cigarettes How Often Do You Have a Drink Containing Alcohol: Never Recent Travel in [facility] within the Last 8 Weeks: No Recent Out of Country Travel within the Last 8 Weeks: No Immunization History Tetanus Immunization: <5 Years Exam Narrative Exam Narrative: GENERAL: Awake and alert, in no acute distress. SKIN: Focused skin assessment warm/dry. HEAD: Atraumatic. Normocephalic. EYES: Pupils equal and round. No scleral icterus. No injection or drainage. ENT: Mucous membranes pink and moist. NECK: Trachea midline. No JVD. CARDIOVASCULAR: Regular rate and rhythm. No murmur appreciated. RESPIRATORY: No accessory muscle use. Clear to auscultation. Breath sounds equal bilaterally. GASTROINTESTINAL: Abdomen soft, non-tender, nondistended. MUSCULOSKELETAL: No obvious deformities. No clubbing. No cyanosis. No edema. NEUROLOGICAL: Awake and alert. No obvious cranial nerve deficits. Motor grossly within normal limits. Normal speech. PSYCHIATRIC: Appropriate mood and affect; insight and judgment normal. Course Initial Documented Vital Signs Temperature 99 F 04/07/18 15:22 Pulse Rate 65 04/07/18 15:22 Respiratory Rate 22 04/07/18 15:22 Blood Pressure 179/73 H 04/07/18 15:22 Pulse Oximetry 97 04/07/18 15:22 Last Documented Vital Signs Temperature 98.2 F 04/08/18 04:00 Pulse Rate 56 L 04/08/18 04:00 Respiratory Rate 18 04/08/18 04:00 Blood Pressure 98/46 L 04/08/18 04:00 Pulse Oximetry 92 L 04/08/18 04:00 Medical Decision Making MDM Narrative Medical decision making narrative: Patient is a 77 year old female who comes in complaining of chest pain. Exam shows no acute abnormalities. IV established, labs sent, connected to the cafeteria monitor. Labs show no acute abnormalities. Given Morphine for pain. Given Aspirin. Patient will be placed in chest pain center for further management. Medical Screen Exam Complete: Yes Emergency Medical Condition: Yes Differential Diagnosis Differential Diagnosis: ACS vs NSTEMI vs STEMI vs muscle strain Medical Records Medical records reviewed: Yes I reviewed the patient's medical records. Lab Data Lab results reviewed: Yes I reviewed the patient's lab results. Result diagrams: 04/07/18 22:15 04/07/18 22:15 Lab Results 04/07/18 04/07/18 04/07/18 Range/Units 22:15 22:15 22:15 WBC 11.1 H (4.0-11.0) th/mm3 RBC 4.24 (4.00-5.30) mil/mm3 Hgb 12.8 (11.6-15.3) gm/dL Hct 37.8 (35.0-46.0) % MCV 89.2 (80.0-100.0) fL MCH 30.3 (27.0-34.0) pg MCHC 33.9 (32.0-36.0) % RDW 13.4 (11.6-17.2) % Plt Count 250 (150-450) th/mm3 MPV 9.1 (7.0-11.0) fL Neut % (Auto) 71.1 H (16.0-70.0) % Lymph % (Auto) 18.6 (9.0-44.0) % Dale % (Auto) 7.7 (0.0-8.0) % Eos % (Auto) 1.8 (0.0-4.0) % Baso % (Auto) 0.8 (0.0-2.0) % Neut # (Auto) 7.9 H (1.8-7.7) th/mm3 Lymph # (Auto) 2.1 (1.0-4.8) th/mm3 Dale # (Auto) 0.9 (0.0-0.9) th/mm3 Eos # (Auto) 0.2 (0.0-0.4) th/mm3 Baso # (Auto) 0.1 (0.0-0.2) th/mm3 WBC Differential . Differential Comment Auto diff final PT 10.2 (9.8-11.6) sec INR 1.0 Ratio APTT 28.5 (23.4-31.7) sec Sodium (136-145) meq/L Potassium (3.5-5.1) meq/L Chloride (98-107) meq/L Carbon Dioxide (21.0-32.0) meq/L Anion Gap (5-15) meq/L BUN (7-18) mg/dL Creatinine (0.50-1.00) mg/dL Estimated GFR (>89) mL/min Random Glucose (74-106) mg/dL Calcium (8.5-10.1) mg/dL Total Bilirubin (0.2-1.0) mg/dL AST (15-37) U/L ALT (10-53) U/L Alkaline Phosphatase (45-117) U/L Total Creatine Kinase (26-192) U/L CK-MB (CK-2) (0.5-3.6) ng/mL Troponin I (0.02-0.05) ng/mL B-Natriuretic Peptide 164 H (0-100) pg/mL Total Protein (6.4-8.2) g/dL Albumin (3.4-5.0) g/dL 04/07/18 04/08/18 04/08/18 Range/Units 22:15 00:19 03:40 WBC (4.0-11.0) th/mm3 RBC (4.00-5.30) mil/mm3 Hgb (11.6-15.3) gm/dL Hct (35.0-46.0) % MCV (80.0-100.0) fL MCH (27.0-34.0) pg MCHC (32.0-36.0) % RDW (11.6-17.2) % Plt Count (150-450) th/mm3 MPV (7.0-11.0) fL Neut % (Auto) (16.0-70.0) % Lymph % (Auto) (9.0-44.0) % Dale % (Auto) (0.0-8.0) % Eos % (Auto) (0.0-4.0) % Baso % (Auto) (0.0-2.0) % Neut # (Auto) (1.8-7.7) th/mm3 Lymph # (Auto) (1.0-4.8) th/mm3 Dale # (Auto) (0.0-0.9) th/mm3 Eos # (Auto) (0.0-0.4) th/mm3 Baso # (Auto) (0.0-0.2) th/mm3 WBC Differential Differential Comment PT (9.8-11.6) sec INR Ratio APTT (23.4-31.7) sec Sodium 139 (136-145) meq/L Potassium 3.2 L (3.5-5.1) meq/L Chloride 104 (98-107) meq/L Carbon Dioxide 28.4 (21.0-32.0) meq/L Anion Gap 7 (5-15) meq/L BUN 7 (7-18) mg/dL Creatinine 0.87 (0.50-1.00) mg/dL Estimated GFR 63 L (>89) mL/min Random Glucose 86 (74-106) mg/dL Calcium 8.8 (8.5-10.1) mg/dL Total Bilirubin 0.4 (0.2-1.0) mg/dL AST 19 (15-37) U/L ALT 19 (10-53) U/L Alkaline Phosphatase 148 H (45-117) U/L Total Creatine Kinase 137 118 104 (26-192) U/L CK-MB (CK-2) 1.8 (0.5-3.6) ng/mL Troponin I Less than 0.02 L Less than 0.02 L Less than 0.02 L (0.02-0.05) ng/mL B-Natriuretic Peptide (0-100) pg/mL Total Protein 7.0 (6.4-8.2) g/dL Albumin 3.4 (3.4-5.0) g/dL Imaging Data Radiologist's impression: Chest X-Ray 04/07/18 21:21 CONCLUSION: Basilar atelectasis with shallow lung volumes. ECG Data EKG Prior to Arrival: No Attestation: I personally reviewed and interpreted this ECG as follows: Discharge Plan Discharge Disposition Patient Disposition: ED Admit(ED Internal Use Only) Discharge Order Discharge Orders: ED Use Only Admit Order (Routine); Ordered 04/07/18 Ordered By: Neeru Alejandro Physicians Team ED Provider: Neeru Alejandro Primary Care Provider: Cuong Holley V Attending Provider: Kritsian Cespedes Other Providers: [employer] Discharge Interventions Interventions: Vital Signs Last Done: 04/07/18 21:13 ED Discharge Assessment Last Done: 04/08/18 00:32 Status ED Status: Admitted Observation Patient
[2018-04-07 22:46] LABS: Alkaline Phosphatase 148 U/L (45-117); Creatine Kinase 137 U/L (26-192)
[2018-04-07 22:58] LABS: Activated Partial Thrombo Time 28.5 sec (23.4-31.7); Prothrombin Time 10.2 sec (9.8-11.6)
[2018-04-07 22:59] LABS: Creatine Kinase MB 1.8 ng/mL (0.5-3.6)
[2018-04-07] MEDS ORDERED: hydrALAZINE HCl Inj 20 MG/ML Vial IV.PUSH ONE (23:29)
[2018-04-08 00:54] LABS: Creatine Kinase 118 U/L (26-192)
[2018-04-08] MEDS: Acetaminophen 500 MG Tablet PO PRN ×3 (01:25→14:24)
[2018-04-08 04:30] LABS: Creatine Kinase 104 U/L (26-192)
[2018-04-08 08:03] VITALS: RESP 20
--- NOTE | 2018-04-08 08:20 | P.HPCA ---
History of Present Illness Primary Care Physician: Cuong Holley MD Chief Complaint: Chest pain History of Present Illness: 77-year-old female with history of COPD, current smoker, hyperlipidemia, hypertension, and reported chronic chest pain for 12 years presents emergency room for further evaluation of neck and chest pain. Onset of neck pain 3 days ago. Location posterior neck described as a "stiff neck." Precipitating factors include movement of neck. No remote or new injury to cervical area. In regards to chest pain onset yesterday 3 PM. Nonexertional. Location substernal. Characterized as pressure. No radiation. Associated symptoms included nausea, dyspnea, diaphoresis. Moderate to severe in severity. Duration constant currently described as mild. No precipitating or relieving factors. Reports chronic chest pain for "at least 10-12 years, but I was worried because pain lasted so long." Does not follow with a bundler seasonal greenery. Reports many cardiac testing completed in the past and cause of chronic chest pain never identified. Denies past cardiac catheterizations. Continues to smoke 1 pack daily. No recent fever, chills, change in chronic cough, or injury. Past cardiac testing 06/26/2017 Lexiscan-normal examination. Social history Known hyperlipidemia and hypertension. No known coronary artery disease or diabetes. Lifelong 1 pack day smoker. No alcohol or recreational drug use. Lives independently, reports family members live locally. - Diagnosis (1) Atypical chest pain (2) COPD (chronic obstructive pulmonary disease) (3) Tobacco use (4) Hypertension (5) Hyperlipidemia (6) Hypothyroidism Review of Systems All other systems reviewed negative except as stated in HPI [facility] - History History Provided By: Patient - Medical History Medical History: Medical History (Last Updated 04/08/18 @ 10:47 by YONI Haider) Acute depression Anxiety COPD (chronic obstructive pulmonary disease) H/O: hysterectomy HTN (hypertension) Hyperlipidemia Hypothyroidism Rheumatoid osteoperiostitis Tobacco user Gout - Surgical History Surgical History: Surgical History (Last Updated 04/08/18 @ 10:47 by YONI Haider) History of appendectomy History of cholecystectomy History of tonsillectomy - Tobacco History Second Hand Smoke Exposure: Yes Tobacco Use In Past 30 Days: Yes Smoking Status: Current every day smoker Tobacco Type: Cigarettes Packs Per Day: 1 Years Smoked: 50 - Alcohol History How Often Do You Have a Drink Containing Alcohol: Never - Substance Use History Substance History: No History of Abuse - Travel History Recent Travel in the [place] Within the Last 8 Weeks: No Recent Travel Out of the Country Within the Last 8 Weeks: No - Immunization History Tetanus Immunization: <5 Years Medications and Allergies Active Medications: Active Medications Acetaminophen (Tylenol) 500 mg PO Q4H PRN PRN Reason: HEADACHE Last Admin: 04/08/18 05:50 Dose: 500 mg Sodium Chloride (Ns Flush) 2 ml IV.FLUSH UNSCH PRN PRN Reason: FLUSH AFTER USING IV ACCESS Sodium Chloride (Ns Flush) 2 ml IV.FLUSH BID VANDA Sodium Chloride (Ns Flush) 2 ml IV.FLUSH PRN PRN PRN Reason: FLUSH AFTER USING IV ACCESS Allergies Allergy/AdvReac Type Severity Reaction Status Date / Time amlodipine Allergy Intermediate Swelling Verified 04/07/18 21:12 codeine Allergy Unknown Swelling Verified 04/07/18 21:12 Home Medications Medication Instructions Recorded Confirmed Type atenolol 50 mg PO BID 04/07/18 04/07/18 History atorvastatin 40 mg PO QPM 04/07/18 04/07/18 History gabapentin 100 mg PO BID 04/07/18 04/07/18 History levothyroxine 75 mcg PO DAILY 04/07/18 04/07/18 History losartan 100 mg PO DAILY 04/07/18 04/07/18 History nitroglycerin 0.4 mg SUBLINGUAL Q5-15M PRN 04/07/18 04/07/18 History trazodone 100 mg PO DAILY 04/07/18 04/07/18 History venlafaxine 150 mg PO DAILY 04/07/18 04/07/18 History Exam Vital signs: Vital Signs 04/07/18 15:22 04/07/18 21:13 04/07/18 22:23 Temperature 99 F Pulse Rate 65 60 Respiratory Rate 22 23 Blood Pressure 179/73 H 216/99 H Pulse Oximetry 97 99 98 04/07/18 23:15 04/08/18 00:23 04/08/18 01:21 Temperature Pulse Rate 61 63 Respiratory Rate 18 16 18 Blood Pressure 187/81 H 147/68 H Pulse Oximetry 98 95 04/08/18 04:00 04/08/18 08:00 Temperature 98.2 F 97.5 F L Pulse Rate 56 L 47 L Respiratory Rate 18 20 Blood Pressure 98/46 L 99/46 L Pulse Oximetry 92 L 94 L Intake & Output 04/07/18 04/08/18 04/08/18 18:59 06:59 18:59 Intake Total Balance Weight 58.513 kg 55.7 kg Intake: Oral Other: Date of Last Bowel Movement 04/07/18 Weight On Admission 58.51 kg Narrative: GENERAL: Alert WN, WD, NAD, pleasant, frail elderly female HEAD: NC, AT EYES: Sclera clear, conjunctiva without injection ENT: Mucous membranes pink and moist NECK: Supple, no masses, trachea midline CV: RRR, without murmur. Chest wall nontender to palpation. RESP: Extremely diminished lungs throughout bilateral, no crackles, wheeze, or rhonchi. symmetrical chest rise, nonlabored, able to speak in full sentences ABD: Soft, NT, ND, no masses, positive bowel tones MS: Normal tone x4 extremities, nontender, no obvious deformities, full range of motion NEURO: Motor strength 5/5, gait WNL PSYCH: A+O x3, pleasant affect, appropriate speech, mood, insight and judgment SKIN: Normal turgor, normal texture, no lesions, no rashes, brisk cap refill, even hair distribution Results 04/07/18 22:15 04/07/18 22:15 Cardiac Enzymes 04/07/18 04/07/18 04/08/18 Range/Units 22:15 22:15 00:19 AST 19 (15-37) U/L CK-MB (CK-2) 1.8 (0.5-3.6) ng/mL Troponin I Less than 0.02 L Less than 0.02 L (0.02-0.05) ng/mL B-Natriuretic Peptide 164 H (0-100) pg/mL 04/08/18 Range/Units 03:40 AST (15-37) U/L CK-MB (CK-2) (0.5-3.6) ng/mL Troponin I Less than 0.02 L (0.02-0.05) ng/mL B-Natriuretic Peptide (0-100) pg/mL Coagulation 04/07/18 04/07/18 Range/Units 22:15 22:15 PT 10.2 (9.8-11.6) sec APTT 28.5 (23.4-31.7) sec B-Natriuretic Peptide 164 H (0-100) pg/mL CBC 04/07/18 Range/Units 22:15 WBC 11.1 H (4.0-11.0) th/mm3 RBC 4.24 (4.00-5.30) mil/mm3 Hgb 12.8 (11.6-15.3) gm/dL Hct 37.8 (35.0-46.0) % Plt Count 250 (150-450) th/mm3 Neut # (Auto) 7.9 H (1.8-7.7) th/mm3 Lymph # (Auto) 2.1 (1.0-4.8) th/mm3 [place] # (Auto) 0.9 (0.0-0.9) th/mm3 Eos # (Auto) 0.2 (0.0-0.4) th/mm3 Baso # (Auto) 0.1 (0.0-0.2) th/mm3 Comprehensive Metabolic Panel 04/07/18 Range/Units 22:15 Sodium 139 (136-145) meq/L Potassium 3.2 L (3.5-5.1) meq/L Chloride 104 (98-107) meq/L Carbon Dioxide 28.4 (21.0-32.0) meq/L BUN 7 (7-18) mg/dL Creatinine 0.87 (0.50-1.00) mg/dL Calcium 8.8 (8.5-10.1) mg/dL AST 19 (15-37) U/L ALT 19 (10-53) U/L Alkaline Phosphatase 148 H (45-117) U/L Total Protein 7.0 (6.4-8.2) g/dL Albumin 3.4 (3.4-5.0) g/dL Intake and Output 04/07/18 04/08/18 04/08/18 22:59 06:59 14:59 Intake Total Balance Intake: Oral Other: Date of Last Bowel Movement 04/07/18 Weight 58.513 kg 55.7 kg Weight On Admission 58.51 kg - Imaging and Cardiology Imaging: Impressions Chest X-Ray 04/07/18 21:21 CONCLUSION: Basilar atelectasis with shallow lung volumes. EKG interpretations - EKG EKG results cardiology: sinus rhythm (Nonspecific ST-T segment changes) Caprini VTE Risk Assessment Caprini VTE Risk Assessment: Moderate/High Risk (score >= 2) Caprini Risk Assessment Model: Point Value = 1 Point Value = 2 Point Value = 3 Point Value = 5 Age 41-60 Minor surgery BMI > 25 kg/m2 Swollen legs Varicose veins or History of unexplained or recurrent spontaneous Oral contraceptives or hormone replacement Sepsis (< 1 month) Serious lung disease, including pneumonia (< 1 month) Abnormal pulmonary function Acute myocardial infarction Congestive heart failure (< 1 month) History of inflammatory bowel disease Medical patient at bed rest Age 61-74 Arthroscopic surgery Major open surgery (> 45 min) Laparoscopic surgery (> 45 min) Malignancy Confined to bed (> 72 hours) Immobilizing plaster cast Central venous access Age >= 75 History of VTE Family history of VTE Factor V Leiden Prothrombin [id number] Lupus anticoagulant Anticardiolipin antibodies Elevated serum homocysteine Heparin-induced thrombocytopenia Other congenital or acquired thrombophilia Stroke (< 1 month) Elective arthroplasty Hip, pelvis, or leg fracture Acute spinal cord injury (< 1 month) Prophylaxis Regimen: Total Risk Factor Score Risk Level Prophylaxis Regimen 0-1 Low Early ambulation 2 Moderate Order ONE of the following: *Sequential Compression Device (SCD) *Heparin 5000 units SQ BID 3-4 Higher Order ONE of the following medications: *Heparin 5000 units SQ TID *Enoxaparin/Lovenox 40 mg SQ daily (WT < 150 kg, CrCl > 30 mL/min) *Enoxaparin/Lovenox 30 mg SQ daily (WT < 150 kg, CrCl > 10-29 mL/min) *Enoxaparin/Lovenox 30 mg SQ BID (WT < 150 kg, CrCl > 30 mL/min) AND/OR *Sequential Compression Device (SCD) 5 or more Highest Order ONE of the following medications: *Heparin 5000 units SQ TID (Preferred with Epidurals) *Enoxaparin/Lovenox 40 mg SQ daily (WT < 150 kg, CrCl > 30 mL/min) *Enoxaparin/Lovenox 30 mg SQ daily (WT < 150 kg, CrCl > 10-29 mL/min) *Enoxaparin/Lovenox 30 mg SQ BID (WT < 150 kg, CrCl > 30 mL/min) AND *Sequential Compression Device (SCD) Assessment and Plan - Assessment (1) Atypical chest pain Code(s): R07.89 - Other chest pain Status: Acute Plan: Admitted chest pain center. Monitor on telemetry overnight. ACS ruled out with 3 sets of EKGs and cardiac enzymes. Seen and evaluated by Dr. Adina Cameron. Patient atypical due to duration of chest discomfort and without change of cardiac enzymes. Proceed with repeating chemical stress testing this morning. If unremarkable, plan is to discharge home with follow-up with primary care provider. (2) COPD (chronic obstructive pulmonary disease) Code(s): J44.9 - Chronic obstructive pulmonary disease, unspecified Status: Chronic Plan: Strongly encourage smoking cessation and taking prescribed inhaler as directed. Duo nebs 1 dose now followed by as needed as needed for shortness of breath and wheezing. (3) Tobacco use Code(s): Z72.0 - Tobacco use Status: Chronic Plan: Strongly encouraged and stressed importance of tobacco cessation. Instructed to quit smoking. Tobacco Free [place] program information will be provided upon discharge. (4) Hypertension Code(s): I10 - Essential (primary) hypertension Status: Chronic Plan: Continue atenolol and losartan. (5) Hyperlipidemia Code(s): E78.5 - Hyperlipidemia, unspecified Status: Chronic Plan: Continue atorvastatin. (6) Hypothyroidism Code(s): E03.9 - Hypothyroidism, unspecified Status: Chronic Plan: Continue levothyroxine. H&P: Quality - VTE Deep Vein Thrombosis/Pulmonary Embolism Present on Admission: No (2) COPD (chronic obstructive pulmonary disease) Qualifiers: Emphysema type: unspecified (4) Hypertension Qualifiers: Hypertension type: unspecified Qualified Code(s): I10 - Essential (primary) hypertension (5) Hyperlipidemia Qualifiers: Hyperlipidemia type: unspecified Qualified Code(s): E78.5 - Hyperlipidemia, unspecified (6) Hypothyroidism Qualifiers: Hypothyroidism type: unspecified Qualified Code(s): E03.9 - Hypothyroidism, unspecified
[2018-04-08] MEDS ORDERED: Regadenoson Inj 0.4 MG/5 ML Syringe IV.PUSH ONE (09:06)
--- NOTE | 2018-04-08 09:07 | ECG ---
Date Performed: 04/07/2018 Time Performed: 15:31:53 PTAGE: 77 years EKG: Sinus rhythm WITH SINUS ARRHYTHMIA LOW QRS VOLTAGE IN PRECORDIAL LEADS NONSPECIFIC T-WAVE ABNORMALITY BORDERLINE ECG Artifact Since PREVIOUS TRACING , no significant change noted DOCTOR: Adina Cameron Interpretating Date/Time 04/08/2018 09:05:30
--- NOTE | 2018-04-08 09:09 | ECG ---
Date Performed: 04/08/2018 Time Performed: 00:28:19 PTAGE: 77 years EKG: SINUS BRADYCARDIA ST DEVIATION AND MODERATE T-WAVE ABNORMALITY, CONSIDER ANTEROLATERAL ISCH EMIA ABNORMAL ECG Since PREVIOUS TRACING , no significant change noted PREVIOUS TRACIN04/07/2018 15.31 DOCTOR: Adina Cameron Interpretating Date/Time 04/08/2018 09:07:29
--- NOTE | 2018-04-08 09:10 | ECG ---
Date Performed: 04/08/2018 Time Performed: 02:24:40 PTAGE: 77 years EKG: SINUS BRADYCARDIA LOW QRS VOLTAGE IN PRECORDIAL LEADS MODERATE T-WAVE ABNORMALITY, CONSIDER LATERAL ISCHEMIA ABNORMAL ECG Since PREVIOUS TRACING , no significant change noted PREVIOUS TRACIN04/08/2018 00.28 DOCTOR: Adina Cameron Interpretating Date/Time 04/08/2018 09:08:22
[2018-04-08] MEDS ORDERED: Levothyroxine 75 MCG Tablet PO SCH (12:00)
[2018-04-08] MEDS ORDERED: Venlafaxine XR 75 MG Capsule PO SCH (12:00)
[2018-04-08 12:22] VITALS: BP 110/52; TEMP 97.8; O2SAT 95
[2018-04-08 12:50] VITALS: PULSE 44
--- NOTE | 2018-04-08 13:06 | NM ---
EXAM DATE: 04/08/2018 12:06 PM EST AGE/SEX: 77 years / Female INDICATIONS:Angina. . CLINICAL DATA: This is the patient's initial encounter. Patient reports that signs and symptoms have been present for 2 days and indicates a pain score of 5/10. MEDICAL/SURGICAL HISTORY: Chronic obstructive pulmonary disease. Hypertension. Hysterectomy. COMPARISON: [facility] [place], MYOCARDIAL PERF PHARM SPECT, 06/26/2017. . DOSE: 8.6 mCi Tc 99m Myoview at rest 26.8 mCi [id number] at stress 0.4 mg Lexiscan STRESS SYMPTOMS: None. EJECTION FRACTION: >70 % TECHNIQUE: The patient underwent pharmacologic stress with infusion of prescribed dose. Continuous ECG tracing was monitored during stress. Gated SPECT imaging was performed after stress and conventi onal SPECT imaging was performed at rest. The examination was performed on a SPECT/CT scanner, both attenuation and non-corrected datasets were reviewed. FINDINGS: Distribution: The maximum perfused segment at stress is in the anterolateral wall. Perfusion Study: The pattern of perfusion at stress is within normal limits. Gated Study: There are intact wall motion and wall thickening without hypokinetic or dyskinetic segm ents. The ejection fraction is calculated at >70%. RISK CATEGORY: Low (<1% Annual Mortality Rate) CONCLUSION: 1. No reversible perfusion defect to indicate stress-induced myocardial ischemia identified. Electronically signed by: Geo Whitaker MD Board Certified Radiologist 04/08/2018 1:05 PM EST
--- NOTE | 2018-04-08 16:39 | TR ---
Date Performed: 04/08/2018 Time Performed: 11:06:00 DOCTOR: Adina Cameron DRUG LIST: ALBUTEROL CATAPRES CLINICAL HISTORY: HTN GERD CHEST PAIN CHEST PAIN SM OKER REASON FOR TEST: REASON FOR ENDING: OBSERVATION: CONCLUSION: Lexiscan stress test was performed under standard four minute protocol. Radionuclid e was injected one minute prior to ending the test. No electrocardiographic abormalities were present to suggest ischemia. Nuclear imaging and interpretation are pending. COMMENTS: Lexiscan stress test was performed under standard four minute protocol. Radionuclide was injected one minute prior to ending the test. No electrocardiographic abormalities were present t o suggest ischemia. Nuclear imaging and interpretation are pending.
== END 2018-04-08 15:28 | disposition home or self-care (01) ==
LOC: NEPE 14:54 → NEDA 14:54 → NEPHCDU 04-08 00:30
PROVIDERS: ADMIT Internal Medicine Interventional Cardiology; ATTEND Internal Medicine Interventional Cardiology
DX: Z79.899 Other long term (current) drug therapy; R07.89 Other chest pain; F17.210 Nicotine dependence, cigarettes, uncomplicated; F41.9 Anxiety disorder, unspecified; J44.9 Chronic obstructive pulmonary disease, unspecified; K21.9 Gastro-esophageal reflux disease without esophagitis; I10 Essential (primary) hypertension; R06.02 Shortness of breath
CPT/HCPCS: 71010; 71045; 78452; 80053; 82550; 82552; 83520; 83880; 84484; 85025; 85610; 85730; 90774; 90784; 93005; 93017; 96374; 99285; A9502; C8952; G0378; J2270; J2785; Q9969